=== PATIENT | male | born 1940 | race Caucasian/White ===

== ENCOUNTER 2016-06-13 06:01 | Day surgery (SDC) | payer MEDICARE, BC ==
[2016-06-13] MEDS ORDERED: Lactated Ringers 1,000 ML IV SCH (06:30)
[2016-06-13] MEDS ORDERED: Lactated Ringers 1,000 ML IV ONE (07:47)
[2016-06-13] MEDS ORDERED: DIPRIVAN 200 MG/20 ML IV ONE (08:00)
[2016-06-13 08:14] VITALS: PULSE 53
[2016-06-13 09:04] VITALS: BP 124/74; O2SAT 99
--- NOTE | 2016-06-13 09:24 | OP ---
SURGERY DATE/TIME: 06/13/2016713 PREOPERATIVE DIAGNOSIS: Persistent gastroesophageal reflux disease. POSTOPERATIVE DIAGNOSIS: Gastric ulcers. PROCEDURES: EGD. SURGEON: Ethan Bryant M.D. ANESTHESIA: MAC by Felix Glasgow CRNA. ESTIMATED BLOOD LOSS: Minimal. SPECIMENS: Two cold forceps biopsies taken from the cardiac portion of the stomach with areas of mild ulceration. DESCRIPTION OF PROCEDURE: After informed written consent was obtained, the patient was taken to the endoscopy suite. He underwent monitored anesthesia after a bite block was inserted. The endoscope was inserted in the posterior oropharynx and under direct visualization the esophagus was easily traversed. The esophageal mucosa had a small normal appearance free of any lesions or defects. Upon entering the stomach there was rugated gastric mucosa with mild ulcerations present encountered quickly after passage through the gastroesophageal junction. The gastric antrum was free of any lesions or defects. The pylorus is traversed and the first and second portions of the duodenum were free of any lesions or defects. Upon withdrawal again significant ulcerations were present on retroflexion in the upper portions of the stomach. Two cold forceps biopsies were sampled in sales representative health [employer] areas and sent for Helicobacter pylori testing. Upon withdrawal the gastroesophageal junction and esophageal mucosa appeared unremarkable. The scope was removed and the patient was transferred to the recovery in excellent condition. I have advised that he continue his Nexium at this time but hold his aspirin until further notice pending biopsy results.
== END 2016-06-13 08:45 | disposition home or self-care (01) ==
LOC: SDC 06:01
PROVIDERS: ATTEND Family Medicine
PROC: 0DB68ZX Excision of Stomach, Via Natural or Artificial Opening Endoscopic, Diagnostic (ICD-10-PCS; principal; 2016-06-13)
DX: K25.9 Gastric ulcer, unspecified as acute or chronic, without hemorrhage or perforation (principal); K21.9 Gastro-esophageal reflux disease without esophagitis; I10 Essential (primary) hypertension; E78.5 Hyperlipidemia, unspecified
CPT/HCPCS: 00740; 36415; 88305; 99100; J2704

== ENCOUNTER 2018-10-28 06:03 | Day surgery (SDC) | payer MEDICARE, BC ==
[2018-10-28] MEDS ORDERED: Lactated Ringers 1,000 ML IV SCH (07:00)
[2018-10-28] MEDS ORDERED: Ketamine HCl 50 MG/ML ONE (07:25)
[2018-10-28] MEDS ORDERED: DIPRIVAN 200 MG/20 ML IV ONE ×2 (07:25→08:33)
--- NOTE | 2018-10-28 09:25 | OP ---
SURGERY DATE/TIME: 10/28/2018 08 PREOPERATIVE DIAGNOSES: 1) History of gastric ulcers. 2) History of colon polyps. POSTOPERATIVE DIAGNOSES: 1) Gastric polyps. 2) Mild sigmoid diverticulosis. PROCEDURES: 1) Esophagogastroduodenoscopy with cold forceps biopsy of gastric polyps. 2) Colonoscopy. SURGEON: Dr. Teran. ANESTHESIA: Medications were given by the anesthesia department. HISTORY: The patient is a 77 year old white male patient presenting now for endoscopic evaluation. He was appraised of the risks of the procedure including the risk of perforation, phlebitis, untoward reaction to medication, bleeding and missed lesions. The patient verbalized his understanding and desired to have the procedure performed. DESCRIPTION OF PROCEDURE: The patient was given the medications by the anesthesia department. He had continuous pulse oximetry, ECG monitoring, intermittent blood pressure monitoring and tidal CO2 monitoring during the examination. He was placed in the left lateral decubitus position. A bite block was placed and the flexible Olympus gastroscope was used to intubate the oropharynx. A view of the larynx was obtained and was normal. The scope was easily passed in the esophagus which was normal throughout its length. The stomach was entered where normal gastric rugal folds were seen and there were a few gastric polyps were seen and these appeared to be benign. Biopsies were obtained of the gastric polyps to insure the benign nature of the polyps. The scope was passed along the greater curvature of the stomach. The pylorus encountered and intubated. The duodenum inspected and found to be normal. The scope is withdrawn towards the stomach. Again, a retroflex view was obtained of the lesser curvature, fundus and cardia regions of the stomach and these appeared to be normal. The scope was then removed from the patient. Next, a digital rectal examination was performed and revealed normal anal sphincter tone and no masses and surgical absence of the prostate. The flexible Olympus pediatric colonoscope was used to intubate the rectum. A view of the colon was developed sequentially to the cecum. Upon insertion and withdrawal, including a retroflex view in the rectum, no mucosal lesions were noted other than a few sigmoid diverticula. The scope was removed from the patient who tolerated the procedure well and was sent back to OP recovery in good condition. The prep was noted to be good.
[2018-10-28 10:40] VITALS: BP 123/71; PULSE 67; O2SAT 95
== END 2018-10-28 10:10 | disposition home or self-care (01) ==
LOC: SDC 06:03
PROVIDERS: ATTEND Family Medicine
DX: K57.30 Diverticulosis of large intestine without perforation or abscess without bleeding (principal); K31.7 Polyp of stomach and duodenum; Z86.010 Personal history of colon polyps
CPT/HCPCS: 88305; 99100; J2704